=== PATIENT | male | born 1955 | race African-American/Black ===

== ENCOUNTER 2020-04-24 22:42 | Emergency (ER) | payer OTHER ==
[~2020-04-24] VITALS: Ht 175.3 cm; Wt 108.9 kg
--- NOTE | ~2020-04-24 | EMS ---
[address] [address] EMS Patient Care Report Name: RUSSELL BANDA Room #: REG XOCHITL Hinojosa#: [id number] Admission: 04/24/20 Attend Phys: Discharge: Date of : 59 Report #: [id number] THIS REPORT FOR: //name// Report Transmitted: 04/24/2020 22:50 EMS Care Summary [place], [place]/[facility] Incident [id number] @ 04/24/2020 22:05 Incident Location [address] [place] [address] Patient RUSSELL JANE Male, 64 Years 1955 Patient Address [address] [place] [address] Patient History Congestive Heart Failure (CHF), Patient Allergies No known allergies, Patient Medications Glipizide, Metoprolol, Lisinopril, Aspirin, Gabapentin, Torsemide, Furosemide, Famotidine, Chief Complaint SEIZURE Disposition Transported No Lights/[place] Dispatch Reason Convulsions/Seizure Transported To [facility] Narrative M528 ARRIVES TO FIND 64 Y/O M PT HAVING HAD A GRAND MAL SEIZURE WITNESSED BY [address] [address] EMS Patient Care Report Name: RUSSELL BANDA Room #: ZOLTAN Hinojosa#: [id number] Admission: 04/24/20 Attend Phys: Discharge: Date of : 59 Report #: [id number] FAMILY ON SCENE LASTING ABOUT THREE MINUTES. PT HAS NO HISTORY OF SEIZURES. ASSESSMENTS AND TREATMENTS NOTED. PT AMBULATORY AND WALKS TO COT. PT MOVED TO AMBULANCE. PT TRANSPORTED. M528 ARRIVES AT DESTINATION. PT MOVED TO ROOM IN ED. PT MOVES TO BED IN ROOM VIA DRAWSHEET METHOD. PT CARE TRANSFERRED. M528 RETURNS TO SERVICE. Initial Vitals @22:18P: 76,BP: 99/63, @22:30P: 75,R: 18,BP: 100/63,Pain: 0/10,GCS: 15,Revised Trauma: 12, @22:16P: 78,R: 18,BP: 88/61,Pain: 0/10,GCS: 15,Glucose: 145,SpO2: 97,Revised Trauma: 11, Assessments @22:14MENTAL:Person Oriented,Time Oriented,Event Oriented,Place Oriented,SKIN:HEENT:LUNG SOUNDS:ABDOMEN:PELVIS//GI:EXTREMITIES:PULSE:NEURO:@22:24MENTAL:No Abnormalities,SKIN:No Abnormalities,HEENT:Head/Face: No Abnormalities,Eyes: No Abnormalities,Neck/Airway: No Abnormalities,LUNG SOUNDS:General: No Abnormalities,Left Upper: No Abnormalities,Right Upper: No Abnormalities,Left Lower: No Abnormalities,Right Lower: No Abnormalities,ABDOMEN:General: No Abnormalities,Left Upper: No Abnormalities,Right Upper: No Abnormalities,Left Lower: No Abnormalities,Right Lower: No Abnormalities,PELVIS//GI:No Abnormalities,EXTREMITIES:Left Arm: No Abnormalities,Right Arm: No Abnormalities,Left Leg: No Abnormalities,Right Leg: No Abnormalities,PULSE:NEURO:No Abnormalities, Impression Seizures Procedures @22:14ALS AssessmentResponse: UnchangedSucceeded@22:30Saline Lock 0cc (18 ga) Site: Antecubital-RightResponse: UnchangedFailed@22:163-Lead ECGResponse: UnchangedSucceeded@22:28Saline Lock 0cc (20 ga) Site: Antecubital-LeftResponse: UnchangedFailed Timeline 22:03,Call Received 22:03,Dispatch Notified 22:05,Dispatched 22:06,En Route 22:13,On Scene 22:14,At Patient 22:14,ALS Assessment,Response: UnchangedSucceeded, 22:16,3-Lead ECG,Response: UnchangedSucceeded, 22:16,BP: 88/61 M,PULSE: 78,RR: 18 R,SPO2: 97 Ox,ETCO2: ,B,PAIN: 0,GCS: 15, [facility] [address] [place] [address] EMS Patient Care Report Name: RUSSELL BANDA Room #: REG [facility]#: [id number] Admission: 04/24/20 Attend Phys: Discharge: Date of : 59 Report #: [id number] 22:18,BP: 99/63 M,PULSE: 76,RR: R,SPO2: Ox,ETCO2: ,BG: ,PAIN: ,GCS: , 22:28,Saline Lock 0cc 20 ga Site: Antecubital-Left,Response: UnchangedFailed, 22:30,Saline Lock 0cc 18 ga Site: Antecubital-Right,Response: UnchangedFailed, 22:30,BP: 100/63 M,PULSE: 75,RR: 18 R,SPO2: Ox,ETCO2: ,BG: ,PAIN: 0,GCS: 15, 22:33,Depart Scene 22:35,At Destination 22:49,Call Closed Disclaimer [email or web address] Copyright 2020 [employer] This EMS Care Summary contains data elements from the applicable legal record (which may be displayed differently). It is designed to provide pertinent information for the following purposes: continuity of care, clinical quality, and state data reporting. The complete legal record is available to ED staff and administrators of the receiving hospital in [employer] Patient Tracker. All data is provided "as is."
[2020-04-24 23:19] LABS: RDW 17.9 % (10.5-14.5)
[2020-04-24 23:21] LABS: ABSOLUTE NEUTROPHILS 9.3 thou/uL (1.4-8.2); EOSINOPHILS 1.4 % (0.0-3.0); HEMATOCRIT 25.6 % (42.0-52.0); LYMPHOCYTES 15.8 % (24.0-44.0); MCH 22.2 pg (26.0-34.0); MCHC 31.2 g/dL (28.0-37.0); MCV 71.4 fL (80.0-100.0); MONOCYTES 7.6 % (1.0-8.0); PLATELET COUNT 247 thou/uL (150-400); POLYS 74.2 % (36.0-66.0); RBC 3.59 mil/uL (4.50-6.00); WBC 12.5 thou/uL (4.0-11.0)
[2020-04-24 23:31] LABS: CALCIUM 8.3 mg/dL (8.5-10.1); CREATININE 3.7 mg/dL (0.7-1.3); POTASSIUM 4.1 mmol/L (3.5-5.1)
[2020-04-24 23:41] LABS: ALBUMIN 3.6 g/dL (3.4-5.0); TOTAL BILIRUBIN 0.6 mg/dL (0.2-1.0); TOTAL PROTEIN 8.3 g/dL (6.4-8.2); TROPONIN-I 0.06 ng/mL (<0.06)
[2020-04-24] MEDS ORDERED: DEMADEX20 MG PO (23:59)
[2020-04-24] MEDS ORDERED: PROAIR HFA8.5 GM INH (23:59)
[2020-04-24] MEDS ORDERED: OMEPRAZOLE40 MG PO (23:59)
[2020-04-24] MEDS ORDERED: DULOXETINE HCL20 MG PO (23:59)
[2020-04-25] MEDS ORDERED: CHANTIX1 EACH PO (00:29)
[2020-04-25] MEDS ORDERED: TRAMADOL 50 MG50 MG PO (00:30)
[2020-04-25] MEDS ORDERED: TIZANIDINE HCL 22 M1 PO (00:49)
[2020-04-25] MEDS ORDERED: GLIPIZIDE ER5 MG PO (00:50)
[2020-04-25] MEDS ORDERED: SPIRIVA18 MCG INH (00:50)
[2020-04-25] MEDS ORDERED: LISINOPRIL10 MG PO (00:50)
[2020-04-25] MEDS ORDERED: NEURONTIN100 MG PO (00:55)
[2020-04-25] MEDS ORDERED: FAMOTIDINE 20 M20 MG PO (00:55)
[2020-04-25] MEDS ORDERED: ASA81BEC PO (00:55)
[2020-04-25] MEDS ORDERED: LOPRESSOR50 MG PO (00:56)
[2020-04-25] MEDS ORDERED: PRAVACHOL40 MG PO (00:57)
[2020-04-25] MEDS ORDERED: K-DUR 20 MEQ T20 MEQ PO (00:57)
[2020-04-25] MEDS ORDERED: MELOXICAM15 MG PO (00:58)
[2020-04-25] MEDS ORDERED: OMEPRAZOLE40 MG PO (00:58)
[2020-04-25] MEDS ORDERED: DULOXETINE HCL20 MG PO (00:59)
[2020-04-25 02:21] LABS: URINE BILIRUBIN NEGATIVE (Negative); URINE BLOOD NEGATIVE (Negative); URINE CLARITY CLEAR; URINE COLOR YELLOW; URINE GLUCOSE-RANDOM* NEGATIVE (Negative); URINE KETONES NEGATIVE (Negative); URINE NITRITE-REFLEX NEGATIVE (Negative); URINE PROTEIN (DIPSTICK) TRACE (Negative); URINE SPECIFIC GRAVITY 1.025 (1.005-1.035)
[2020-04-25 02:24] LABS: URINE LEUKOCYTES-REFLEX 1+ (Negative)
[2020-04-25 02:28] LABS: AMP/METHAMP Negative (Negative); BARBITURATES Negative (Negative); BENZODIAZEPINES Negative (Negative); COCAINE Negative (Negative); METHADONE Negative (Negative); OPIATES Negative (Negative); PCP Negative (Negative)
[2020-04-25 02:36] LABS: BACTERIA-REFLEX None Seen /HPF (None Seen); CASTS None Seen /LPF (None Seen); CRYSTALS None Seen /LPF (None Seen); MUCUS None Seen strn/LPF (None Seen); SQUAMOUS 0-3 Few /LPF (0-3); URINE RBC None Seen /HPF (0-2)
[2020-04-25 02:37] LABS: URINE WBC-REFLEX 0-5 Rare /HPF (0-5)
[2020-04-25 03:23] VITALS: BP 107/80
--- NOTE | 2020-04-25 11:46 | EKG ---
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
== END 2020-04-25 03:24 | disposition short-term general hospital (02) ==
LOC: ER 22:42
PROVIDERS: Emergency Medicine
DX: A41.9 Sepsis, unspecified organism (principal); D64.9 Anemia, unspecified; R56.9 Unspecified convulsions; R06.00 Dyspnea, unspecified; R19.5 Other fecal abnormalities; I50.9 Heart failure, unspecified; N17.9 Acute kidney failure, unspecified; Z79.82 Long term (current) use of aspirin; Z79.899 Other long term (current) drug therapy; Z95.4 Presence of other heart-valve replacement

== ENCOUNTER 2021-01-17 17:42 | Emergency (ER) | payer OTHER ==
[~2021-01-17] VITALS: Ht 175.3 cm; Wt 99.8 kg
[~2021-01-17 17:42] MED LIST: ASA81BEC PO; CHANTIX1 EACH PO; DEMADEX20 MG PO; DULOXETINE HCL20 MG PO; FAMOTIDINE 20 M20 MG PO; GLIPIZIDE ER5 MG PO; K-DUR 20 MEQ T20 MEQ PO; LISINOPRIL10 MG PO; LOPRESSOR50 MG PO; MELOXICAM15 MG PO; NEURONTIN100 MG PO; OMEPRAZOLE40 MG PO; PRAVACHOL40 MG PO; PROAIR HFA8.5 GM INH; SPIRIVA18 MCG INH; TIZANIDINE HCL 22 M1 PO; TRAMADOL 50 MG50 MG PO
[2021-01-17 21:39] LABS: ABSOLUTE NEUTROPHILS 7.3 thou/uL (1.4-8.2); BASOPHILS 0.2 % (0.0-2.0); EOSINOPHILS 3.4 % (0.0-3.0); HEMATOCRIT 43.7 % (42.0-52.0); HEMOGLOBIN 14.6 gm/dL (14.0-18.0); LYMPHOCYTES 28.3 % (24.0-44.0); MCH 24.4 pg (26.0-34.0); MCHC 33.5 g/dL (28.0-37.0); MCV 72.8 fL (80.0-100.0); PLATELET COUNT 256 thou/uL (150-400); POLYS 62.1 % (36.0-66.0); RDW 16.1 % (10.5-14.5); WBC 11.7 thou/uL (4.0-11.0)
[2021-01-17 21:46] LABS: CALCIUM 9.1 mg/dL (8.5-10.1); CREATININE 2.2 mg/dL (0.7-1.3)
[2021-01-17] MEDS ORDERED: LASIX 40 MG TAB40 MG PO (21:59)
[2021-01-17] MEDS ORDERED: PREDNISONE 20 M20 MG PO (21:59)
[2021-01-17 22:15] VITALS: BP 113/82
== END 2021-01-17 22:17 | disposition home or self-care (01) ==
LOC: ER 17:42
PROVIDERS: Emergency Medicine
DX: I11.0 Hypertensive heart disease with heart failure (principal); I50.9 Heart failure, unspecified; J44.9 Chronic obstructive pulmonary disease, unspecified; E11.9 Type 2 diabetes mellitus without complications; E78.00 Pure hypercholesterolemia, unspecified; Z87.891 Personal history of nicotine dependence; Z79.899 Other long term (current) drug therapy; Z79.82 Long term (current) use of aspirin